=== PATIENT | female | born 1980 | race Hispanic/Latino ===

== ENCOUNTER 2023-11-15 12:09 | Emergency (ER) | payer MEDICAID ==
[~2023-11-15] VITALS: Ht 157.5 cm; Wt 220.7 kg
[2023-11-15] MEDS: 0.9%NACL 1000ML 1,000 ML IV ONE (12:38)
[2023-11-15] MEDS: KETOROLAC 30MG VIAL (30MG/ML) IVP ONE (12:38)
[2023-11-15 12:53] LABS: CREATININE 0.9 mg/dL (0.5-1.0); POTASSIUM 3.3 mmol/L (3.5-5.1)
[2023-11-15 12:58] LABS: ALBUMIN 3.1 g/dL (3.5-5.0); BILIRUBIN,TOTAL 0.7 mg/dL (0.2-1.0); TOTAL PROTEIN, SERUM 8.9 g/dL (6.0-8.3)
[2023-11-15] MEDS: POTASSIUM BICARB/CIT AC 25 MEQ TABLET.EFF PO ONE (13:47)
[2023-11-15 14:41] LABS: APPEARANCE,URINE CLOUDY (CLEAR); BILIRUBIN,URINE NEGATIVE (NEGATIVE); COLOR,URINE YELLOW (YELLOW); GLUCOSE, URINE (UA) NEGATIVE (NEGATIVE); KETONES,URINE NEGATIVE (NEGATIVE); LEUKOCYTE ESTERASE ,URINE 25 Leu/uL (NEGATIVE); NITRATE,URINE NEGATIVE (NEGATIVE); OCCULT BLOOD,URINE NEGATIVE (NEGATIVE); PROTEIN,URINE 20 mg/dL (NEGATIVE); UROBILINOGEN,URINE 0.2 mg/dL (0.2-1.0)
[2023-11-15 14:43] LABS: ADD UA MICROSCOPIC YES; HCG,QUALITATIVE URINE NEGATIVE (NEGATIVE)
[2023-11-15 14:47] LABS: MUCUS,URINE RARE LPF (None Seen); RBC,URINE 0-1 /HPF (0-1); SQUAMOUS EPITHELIAL CELL,UR MOD /HPF (0-2)
[2023-11-15 15:35] LABS: BASOPHILS # (AUTO) 0.04 K/uL (0.00-0.20); BASOPHILS % (AUTO) 0.3 % (0.0-5.0); EOSINOPHILS # (AUTO) 0.02 K/uL (0.00-0.70); EOSINOPHILS % (AUTO) 0.2 % (0.0-8.0); HEMATOCRIT 41.1 % (36-48); IMMATURE GRANULOCYTE ABSOLUTE 0.07 K/uL (0-1); LYMPHOCYTES # (AUTO) 1.5 K/uL (1.0-4.8); LYMPHOCYTES % (AUTO) 12.2 % (21.0-51.0); MEAN CORPUSCULAR HEMOGLOBIN 27.4 pg (27.0-33.0); MEAN CORPUSCULAR HGB CONC 31.4 g/dL (32.0-36.0); MEAN CORPUSCULAR VOLUME 87.3 fL (79-99); MONOCYTES # (AUTO) 0.7 K/uL (0.1-1.0); MONOCYTES % (AUTO) 5.8 % (3.0-13.0); NEUTROPHILS # (AUTO) 9.8 K/uL (1.8-7.7); NEUTROPHILS % (AUTO) 80.9 % (40.0-77.0); PLATELET COUNT (AUTO) 248 K/uL (130-400); RED BLOOD CELL COUNT(AUTO) 4.71 MIL/uL (4.00-5.50); RED CELL DISTRIBUTION WIDTH 14.6 % (11.0-15.5); WHITE BLOOD COUNT (AUTO) 12.1 K/uL (4.8-10.8)
[2023-11-15] MEDS ORDERED: DICY20TA2 PO (16:01)
[2023-11-15] MEDS ORDERED: METR-172 PO (16:01)
[2023-11-15 16:03] VITALS: BP 145/79; PULSE 89; RESP 18; O2SAT 96
== END 2023-11-15 16:17 | disposition home or self-care (01) ==
LOC: EDH 12:09
DX: A08.4 Viral intestinal infection, unspecified (principal); R19.7 Diarrhea, unspecified; E87.6 Hypokalemia; E86.0 Dehydration; E66.9 Obesity, unspecified; Z68.45 Body mass index [BMI] 70 or greater, adult
CPT/HCPCS: 99285; 96374; 96361; 80053; 83690; 85025; 81001; 81025; 36415; J7030; J1885

== ENCOUNTER 2024-01-15 17:16 | Inpatient (IN) | payer MEDICAID ==
[~2024-01-15] VITALS: Ht 157.5 cm; Wt 219.0 kg
[~2024-01-15 17:16] MED LIST: DICY20TA2 PO; METR-172 PO
[2024-01-15] MEDS: ceFEPime HCL 1 GM VIAL IVPB ONE (17:52)
[2024-01-15 17:53] LABS: BASOPHILS # (AUTO) 0.04 K/uL (0.00-0.20); BASOPHILS % (AUTO) 0.5 % (0.0-5.0); EOSINOPHILS % (AUTO) 4.1 % (0.0-8.0); HEMATOCRIT 40.8 % (36-48); IMMATURE GRANULOCYTE ABSOLUTE 0.05 K/uL (0-1); LYMPHOCYTES # (AUTO) 1.8 K/uL (1.0-4.8); LYMPHOCYTES % (AUTO) 24.6 % (21.0-51.0); MEAN CORPUSCULAR HEMOGLOBIN 26.3 pg (27.0-33.0); MEAN CORPUSCULAR HGB CONC 31.1 g/dL (32.0-36.0); MEAN CORPUSCULAR VOLUME 84.5 fL (79-99); MONOCYTES # (AUTO) 0.6 K/uL (0.1-1.0); MONOCYTES % (AUTO) 8.1 % (3.0-13.0); NEUTROPHILS # (AUTO) 4.6 K/uL (1.8-7.7); PLATELET COUNT (AUTO) 268 K/uL (130-400); RED BLOOD CELL COUNT(AUTO) 4.83 MIL/uL (4.00-5.50); WHITE BLOOD COUNT (AUTO) 7.4 K/uL (4.8-10.8)
[2024-01-15 18:14] LABS: CREATININE 0.8 mg/dL (0.5-1.0); POTASSIUM 3.8 mmol/L (3.5-5.1)
[2024-01-15] MEDS: VANCOMYCIN KIT 1 GM/250 ML IV.KIT IV ONE (18:16)
[2024-01-15 18:29] LABS: INR 1.06 (0.85-1.15); PROTHROMBIN TIME 11.4 SEC (9.6-11.6)
[2024-01-15 18:30] LABS: PARTIAL THROMBOPLASTIN TIME 28.5 SEC (26.3-35.5)
[2024-01-15] MEDS ORDERED: GLUCAGON 1MG KIT 1 MG ML IM PRN (19:30)
[2024-01-15] MEDS ORDERED: DEXTROSE 50%-WATER 50 ML DISP.SYRIN IV PRN (19:30)
[2024-01-15] MEDS ORDERED: VANCOMYCIN PROTOCOL PER PHARMACY IV SCH (19:30)
[2024-01-15] MEDS: ceFEPime HCL 1 GM VIAL IVPB SCH (19:30)
[2024-01-15] MEDS ORDERED: ONDANSETRON 4MG INJ IVP PRN (19:30)
[2024-01-15] MEDS: VANCOMYCIN IV SCH (19:46)
[2024-01-15] MEDS: acetaMINOPHEN 325 MG TAB PO PRN (19:59)
[2024-01-15] MEDS: INSULIN humuLIN R 100 UNIT/ML 3ML SQ SCH (20:36)
[2024-01-15] MEDS ORDERED: VANCOMYCIN IV SCH (21:00)
[2024-01-15 22:40] VITALS: O2SAT 95
[2024-01-16] VITALS (8 sets, daily range): BP systolic 119–149; BP diastolic 68–84; PULSE 59–94; RESP 16–20; O2SAT 95–96
[2024-01-16] MEDS ORDERED: CLIN-141 PO ×2 (01:58→01:59)
[2024-01-16] MEDS ORDERED: METO-409 PO (01:58)
[2024-01-16] MEDS ORDERED: HYDR25TA PO (01:58)
[2024-01-16] MEDS: ceFEPime HCL 1 GM VIAL IVPB SCH (01:59)
[2024-01-16] MEDS ORDERED: SILV20CR11 TP (01:59)
[2024-01-16] MEDS: VANCOMYCIN IV SCH (03:45)
[2024-01-16 05:40] LABS: BASOPHILS # (AUTO) 0.03 K/uL (0.00-0.20); BASOPHILS % (AUTO) 0.4 % (0.0-5.0); EOSINOPHILS % (AUTO) 4.3 % (0.0-8.0); HEMATOCRIT 36.5 % (36-48); IMMATURE GRANULOCYTE ABSOLUTE 0.05 K/uL (0-1); LYMPHOCYTES # (AUTO) 1.8 K/uL (1.0-4.8); LYMPHOCYTES % (AUTO) 25.4 % (21.0-51.0); MEAN CORPUSCULAR HEMOGLOBIN 26.3 pg (27.0-33.0); MEAN CORPUSCULAR VOLUME 84.9 fL (79-99); MONOCYTES # (AUTO) 0.6 K/uL (0.1-1.0); MONOCYTES % (AUTO) 8.2 % (3.0-13.0); NEUTROPHILS # (AUTO) 4.2 K/uL (1.8-7.7); PLATELET COUNT (AUTO) 240 K/uL (130-400); RED CELL DISTRIBUTION WIDTH 14.1 % (11.0-15.5)
[2024-01-16 05:47] LABS: CREATININE 0.8 mg/dL (0.5-1.0); MAGNESIUM 1.8 mg/dL (1.80-2.40); POTASSIUM 3.6 mmol/L (3.5-5.1)
[2024-01-16] MEDS: MAGNESIUM 2GM PREMIX 50ML 50 ML IV PRN (06:28)
[2024-01-16] MEDS: KCL 20 MEQ ERTAB PO PRN (06:28)
[2024-01-16] MEDS ORDERED: POTASSIUM CHLORIDE 20MEQ/100ML 100 ML IV PRN (06:30)
[2024-01-16] MEDS: MORPHINE 2 MG SYG IVP PRN (08:46)
[2024-01-16] MEDS: ENOXAPARIN SODIUM 30 MG/0.3 ML SQ SCH (08:47)
[2024-01-16] MEDS: POTASSIUM CHLORIDE 10% ELIXIR 20 MEQ/15 ML UDCUP PO PRN (13:50)
[2024-01-16] MEDS ORDERED: VANCOMYCIN 1.75 GM/250 ML BAG 250 ML IV SCH (16:00)
[2024-01-16] MEDS ORDERED: VANCOMYCIN IV SCH (21:00)
[2024-01-17] VITALS (7 sets, daily range): BP systolic 109–145; BP diastolic 63–92; PULSE 77–91; RESP 16–20; O2SAT 94–96
[2024-01-17] MEDS: VANCOMYCIN 1G/250ML KIT 250 ML IV ONE (03:02)
[2024-01-17] MEDS: VANCOMYCIN 750MG VIAL ONE (03:02)
[2024-01-18 04:00] VITALS: BP 120/75; PULSE 78; RESP 20
[2024-01-18 05:34] LABS: HEMATOCRIT 37.7 % (36-48); MEAN CORPUSCULAR HEMOGLOBIN 27.1 pg (27.0-33.0); MEAN CORPUSCULAR HGB CONC 31.3 g/dL (32.0-36.0); MEAN CORPUSCULAR VOLUME 86.7 fL (79-99); RED BLOOD CELL COUNT(AUTO) 4.35 MIL/uL (4.00-5.50); RED CELL DISTRIBUTION WIDTH 14.2 % (11.0-15.5); WHITE BLOOD COUNT (AUTO) 6.1 K/uL (4.8-10.8)
[2024-01-18 05:37] LABS: CREATININE 0.7 mg/dL (0.5-1.0); MAGNESIUM 1.9 mg/dL (1.80-2.40); POTASSIUM 3.8 mmol/L (3.5-5.1)
[2024-01-18 07:33] VITALS: BP 128/79; PULSE 74; RESP 20
[2024-01-18] MEDS: VANCOMYCIN 1.75 GM/250 ML BAG 250 ML IV SCH (08:57)
[2024-01-18 11:45] VITALS: BP 122/74; PULSE 73; RESP 20
[2024-01-18 15:50] VITALS: BP 123/77; PULSE 75; RESP 20
[2024-01-18 16:35] VITALS: O2SAT 94
[2024-01-18 20:00] VITALS: BP 125/71; PULSE 90; RESP 21; O2SAT 94
[2024-01-19] VITALS (7 sets, daily range): BP systolic 112–139; BP diastolic 64–74; PULSE 72–102; RESP 17–22; O2SAT 93–96
[2024-01-19] MEDS ORDERED: VANCOMYCIN 1.5 GM/250 ML BAG 250 ML IV SCH (18:30)
== END 2024-01-19 18:25 | disposition home or self-care (01) | DRG 383 ==
LOC: EDH 17:16 → EDHIP 19:04 → 3DH 22:47
PROVIDERS: ADMIT Internal Medicine Infectious Disease; ATTEND Internal Medicine Infectious Disease
DX: L03.115 Cellulitis of right lower limb (principal); L97.918 Non-pressure chronic ulcer of unspecified part of right lower leg with other specified severity; E66.01 Morbid (severe) obesity due to excess calories; I16.0 Hypertensive urgency; R53.81 Other malaise; I10 Essential (primary) hypertension; L53.8 Other specified erythematous conditions; M79.89 Other specified soft tissue disorders; Z79.899 Other long term (current) drug therapy; Z68.53 Body mass index [BMI] pediatric, 85th percentile to less than 95th percentile for age; Z90.49 Acquired absence of other specified parts of digestive tract
CPT/HCPCS: 36415; 80048; 80202; 82948; 83036; 83605; 83735; 84145; 84484; 85025; 85027; 85610; 85730; 93970; 94760; 96365; G0378; J0692; J1650; J2270; J3370; J3475